=== PATIENT | male | born 1985 | race Caucasian/White ===

== ENCOUNTER 2019-05-10 09:50 | Emergency (ER) | payer OTHER ==
[~2019-05-10] VITALS: Ht 170.2 cm; Wt 68.0 kg
--- NOTE | 2019-05-10 10:00 | NUR ---
ED Nurse Note: Pt ambulated to ED d/t earache x 3 days. Pt denies any fever/chills. VSS, on RA, NAD.
[2019-05-10 10:03] VITALS: BP 131/84
--- NOTE | 2019-05-10 10:09 | NUR ---
ED Nurse Note: Dr. Tai on bedside.
[2019-05-10] MEDS ORDERED: AMOXICILLIN500 MG ORAL (10:11)
[2019-05-10 10:15] VITALS: BP 131/84
--- NOTE | 2019-05-10 10:15 | NUR ---
ER DISCHARGE NOTE: Patient is cleared to be discharged per ERMD, pt is aox4, on room air, with stable vital signs. pt was given dc and prescription instructions, pt was able to verbalize understanding, pt id band removed. pt is able to ambulate with steady gait. pt took all belongings.
--- NOTE | 2019-05-10 10:31 | Emergency Room Report ---
History of Present Illness General Chief Complaint: Earache Source: Patient Present Illness HPI 34-year-old male presents ED for evaluation. Complaining of left ear pain for the last 3 days. Dull, 5 out of 10, nonradiating. Notes cough. Denies fevers or chills. Denies sick contacts or recent travel. No other aggravating relieving factors. Denies any other associated symptoms Allergies: Coded Allergies: No Known Allergies (Unverified , 05/10/19) Patient History Past Medical History: none Past Surgical History: none Pertinent Family History: none Social History: Denies: smoking, alcohol use, drug use Immunizations: UTD Reviewed Nursing Documentation: PMH: Agreed; PSxH: Agreed Nursing Documentation-PMH Past Medical History: No Stated History Review of Systems All Other Systems: negative except mentioned in HPI Physical Exam Vital Signs Date Time Temp Pulse Resp B/P (MAP) Pulse Ox O2 Delivery O2 Flow Rate FiO2 05/10/19 09:56 98.1 83 15 131/84 (100) 97 Room Air Sp02 EP Interpretation: reviewed, normal General Appearance: no apparent distress, alert, GCS 15, non-toxic Head: normocephalic, atraumatic Eyes: bilateral eye normal inspection, bilateral eye PERRL ENT: hearing grossly normal, normal pharynx, no angioedema, normal voice, other - erythema R TM. Neck: full range of motion, supple, supple/symm/no masses Respiratory: chest non-tender, lungs clear, normal breath sounds, speaking full sentences Cardiovascular #1: regular rate, rhythm, no edema Cardiovascular #2: 2+ carotid (R), 2+ carotid (L), 2+ radial (R), 2+ radial (L) , 2+ dorsalis pedis (R), 2+ dorsalis pedis (L) Gastrointestinal: normal bowel sounds, non tender, soft, non-distended, no guarding, no rebound Rectal: deferred Genitourinary: normal inspection, no CVA tenderness Musculoskeletal: back normal, normal range of motion, gait/station normal, non- tender Neurologic: alert, motor strength/tone normal, oriented x3, sensory intact, responsive, speech normal Psychiatric: judgement/insight normal, memory normal, mood/affect normal, no suicidal/homicidal ideation Reflexes: 3+ bicep (R), 3+ bicep (L), 3+ tricep (R), 3+ tricep (L), 3+ knee (R) , 3+ knee (L) Skin: no rash Lymphatic: no adenopathy Medical Decision Making Diagnostic Impression: Primary Impression: Otitis media Qualified Codes: H66.90 - Otitis media, unspecified, unspecified ear ER Course Hospital Course 34-year-old M presents to ED with pain L ear. no fever. Differential diagnoses include: TM perforation, otitis externa, otitis media Clinical course Patient placed on stretcher. After initial history, physical exam reveals a young male in no acute distress. L TM poor light reflex, erythematous. Remainder of physical exam unremarkable. clinical findings consistent with otitis media I discussed findings with patient. Will discharge home with antibiotics. Safe for discharge for close outpatient follow-up. States he has a PMD Diagnosis - otitis media Stable and discharged to home with amoxicillin. Followup with PMD. Return to ED if symptoms recur or worsen Last Vital Signs Date Time Temp Pulse Resp B/P (MAP) Pulse Ox O2 Delivery O2 Flow Rate FiO2 05/10/19 10:03 98.1 72 15 131/84 97 Room Air Status: improved Disposition: HOME, SELF-CARE Condition: Stable Scripts Amoxicillin* (AMOXIL*) 500 Mg Capsule 500 MG ORAL THREE TIMES A DAY for 10 Days, #30 CAP Prov: Hipolito Tai MD 05/10/19 Referrals: NON PHYSICIAN (PCP) Patient Instructions: Otitis Media, Adult Hipolito Tai MD May 10, 2019 10:31
== END 2019-05-10 10:15 | disposition home or self-care (01) ==
LOC: EMR 10:12
DX: H66.92 Otitis media, unspecified, left ear (principal)
CPT/HCPCS: 99282